=== PATIENT | female | born 1945 | race Caucasian/White ===

== ENCOUNTER 2017-11-03 16:47 | Inpatient (IN) | payer MEDICARE ==
[~2017-11-03] VITALS: Ht 160 cm; Wt 65.8 kg
[2017-11-03 18:01] VITALS: BP 117/66
[2017-11-03] MEDS ORDERED: Dicyclomine HCl 10mg/5ml oral soln ORAL ONE (18:30)
[2017-11-03] MEDS ORDERED: Lidocaine 2% Visc 15ml soln ORAL ONE (18:30)
[2017-11-03] MEDS ORDERED: Mylanta II UD 30ml ORAL ONE (18:30)
--- NOTE | 2017-11-03 18:38 | Emergency Room Report ---
History of Present Illness General Chief Complaint: General Complaint Source: Patient, EMS Present Illness HPI 72-year-old female, history of COPD, presenting with shortness of breath for many weeks. Patient states that she was at the nail salon getting her nails done, stated that she became short of breath on exertion. This is the same shortness of breath that she has been feeling for several weeks. States that she does not have her inhaler at home because she has not had a refill. Denies any chest pain. Some nausea no vomiting. No diarrhea she has otherwise been eating and drinking well Allergies: Coded Allergies: PENICILLINS (Verified Allergy, Unknown, 11/03/17) Patient History Past Medical History: see triage record Past Surgical History: none Pertinent Family History: none Reviewed Nursing Documentation: PMH: Agreed, PSxH: Agreed Nursing Documentation-PMH Past Medical History: No History, Except For Hx Cardiac Problems: Yes Hx Asthma: No - EMPHYSEMA Hx Cerebrovascular Accident: Yes - TIA Review of Systems All Other Systems: negative except mentioned in HPI Physical Exam Vital Signs Date Time Temp Pulse Resp B/P (MAP) Pulse Ox O2 Delivery O2 Flow Rate FiO2 11/03/17 16:53 98.6 82 20 117/66 100 Room Air Sp02 EP Interpretation: reviewed, normal General Appearance: normal inspection, well appearing, no apparent distress, alert, GCS 15, non-toxic Head: normocephalic, atraumatic Eyes: bilateral eye normal inspection, bilateral eye PERRL, bilateral eye EOMI ENT: normal ENT inspection, normal pharynx, normal voice, moist mucus membranes Neck: normal inspection, full range of motion, supple Respiratory: normal inspection, lungs clear, normal breath sounds, no respiratory distress, no retraction, no wheezing, speaking full sentences, chest symmetrical Cardiovascular #1: normal inspection, regular rate, rhythm, no edema, normal capillary refill Cardiovascular #2: 2+ radial (R), 2+ radial (L) Gastrointestinal: normal inspection, non tender, soft, non-distended, no guarding Musculoskeletal: normal inspection, back normal, normal range of motion, non- tender Neurologic: normal inspection, alert, oriented x3, responsive, motor strength/ tone normal, sensory intact, normal gait, speech normal Psychiatric: normal inspection, judgement/insight normal, memory normal Skin: normal inspection, normal color, no rash, warm/dry, well hydrated, normal turgor Medical Decision Making Diagnostic Impression: Primary Impression: Dyspnea Additional Impression: Intractable nausea and vomiting ER Course 72-year-old female with pmhx of COPD p/w SOB for several weeks DDX: COPD exacerbation, ACS, pneumonia, viral URI Plan: IV access, aquatics instructor, O2 nasal cannula, EKG, CXR obtain basic labs including blood gas, troponin ER Course: Patient has not been in any respiratory distress, is not wheezing States that she feels nauseous, Zofran given Patient continues to speak in complete sentences and is not in respiratory distress. continues to feel nauseous, intractable n/v. abdomen continues to be soft. given more pain meds Disposition: Pt will be admitted to telemetry D/W hospitalist Dr Simmons who has accepted patient for admission Please note that this Emergency Department Report was dictated using [employer] screen etcher technology software, occasionally this can lead to erroneous entry secondary to interpretation by the dictation equipment. EKG Diagnostic Results EP Interpretation: Yes Rate: normal Rhythm: NSR ST Segments: T-wave flattening in the inferior leads ASA given to patient: No Rhythm Strip EP Interpretation: Yes Rate: 80 Rhythm: NSR, no PVCs, no ectopy Chest X-ray CXR: Ordered: Yes 1 view Indication: SOB EP interpretation: Yes Interpretation: No consolidation, no effusion, no PTX, no acute cardiopulmonary disease Impression: No acute disease Electronically signed by Kenya Tim MD Laboratory Tests Test 11/03/17 18:09 11/03/17 19:30 White Blood Count 10.1 K/UL (4.8-10.8) Red Blood Count 4.75 M/UL (4.20-5.40) Hemoglobin 14.2 G/DL (12.0-16.0) Hematocrit 44.2 % (37.0-47.0) Mean Corpuscular Volume 93 FL (80-99) Mean Corpuscular Hemoglobin 30.0 PG (27.0-31.0) Mean Corpuscular Hemoglobin Concent 32.2 G/DL (32.0-36.0) Red Cell Distribution Width 11.6 % (11.6-14.8) Platelet Count 346 K/UL (150-450) Mean Platelet Volume 6.3 FL (6.5-10.1) L Neutrophils (%) (Auto) % (45.0-75.0) Lymphocytes (%) (Auto) % (20.0-45.0) Monocytes (%) (Auto) % (1.0-10.0) Eosinophils (%) (Auto) % (0.0-3.0) Basophils (%) (Auto) % (0.0-2.0) Differential Total Cells Counted 100 Neutrophils % (Manual) 82 % (45-75) H Lymphocytes % (Manual) 13 % (20-45) L Monocytes % (Manual) 3 % (1-10) Eosinophils % (Manual) 0 % (0-3) Basophils % (Manual) 0 % (0-2) Band Neutrophils 2 % (0-8) Platelet Estimate Adequate Platelet Morphology Normal Red Blood Cell Morphology Normal Sodium Level 142 MMOL/L (136-145) Potassium Level 3.1 MMOL/L (3.5-5.1) L Chloride Level 107 MMOL/L (98-107) Carbon Dioxide Level 24 MMOL/L (21-32) Anion Gap 11 mmol/L (5-15) Blood Urea Nitrogen 19 mg/dL (7-18) H Creatinine 0.6 MG/DL (0.55-1.30) Estimate Glomerular Filtration Rate mL/min (>60) Glucose Level 124 MG/DL (74-106) H Calcium Level 7.6 MG/DL (8.5-10.1) L Total Bilirubin 0.4 MG/DL (0.2-1.0) Aspartate Amino Transferase (AST) 12 U/L (15-37) L Alanine Aminotransferase (ALT) 16 U/L (12-78) Alkaline Phosphatase 74 U/L (46-116) Troponin I 0.017 ng/mL (0.000-0.056) Pro-B-Type Natriuretic Peptide 52 pg/mL (0-125) Total Protein 6.7 G/DL (6.4-8.2) Albumin 3.5 G/DL (3.4-5.0) Globulin 3.2 g/dL Albumin/Globulin Ratio 1.1 (1.0-2.7) Urine Color Yellow Urine Appearance Slightly cloudy Urine pH 7 (4.5-8.0) Urine Specific [place] 1.015 (1.005-1.035) Urine Protein 1+ (NEGATIVE) H Urine Glucose (UA) Negative (NEGATIVE) Urine Ketones 3+ (NEGATIVE) H Urine Occult Blood 4+ (NEGATIVE) H Urine Nitrite Negative (NEGATIVE) Urine Bilirubin Negative (NEGATIVE) Urine Urobilinogen 1 MG/DL (0.0-1.0) H Urine Leukocyte Esterase 3+ (NEGATIVE) H Urine RBC 10-15 /HPF (0 - 2) H Urine WBC 5-10 /HPF (0 - 2) H Urine Squamous Epithelial Cells Few /LPF (NONE/OCC) Urine Calcium Oxalate Crystals Few /LPF (NONE) Urine Bacteria Few /HPF (NONE) Urine Yeast Few /HPF (NONE) H Last Vital Signs Date Time Temp Pulse Resp B/P (MAP) Pulse Ox O2 Delivery O2 Flow Rate FiO2 11/03/17 18:01 98.6 78 20 117/66 100 Room Air Disposition: ADMITTED INPATIENT Condition: Serious Scripts Phenazopyridine Hcl* (PYRIDIUM*) 200 Mg Tablet 200 MG ORAL THREE TIMES A DAY, #14 TAB 0 Refills Prov: Kenya Tim M.D. 11/03/17 Kenya Tim M.D. Nov 03, 2017 18:38
[2017-11-03 18:46] LABS: HEMATOCRIT 44.2 % (37.0-47.0); HEMOGLOBIN 14.2 G/DL (12.0-16.0); MEAN CORPUSCULAR VOLUME 93 FL (80-99); PLATELET COUNT 346 K/UL (150-450); RED BLOOD COUNT 4.75 M/UL (4.20-5.40); RED CELL DISTRIBUTION WIDTH 11.6 % (11.6-14.8); WHITE BLOOD COUNT 10.1 K/UL (4.8-10.8)
[2017-11-03 18:56] LABS: ANION GAP 11 mmol/L (5-15); BLOOD UREA NITROGEN 19 mg/dL (7-18); CALCIUM 7.6 MG/DL (8.5-10.1); CARBON DIOXIDE 24 MMOL/L (21-32); CHLORIDE 107 MMOL/L (98-107); CREATININE 0.6 MG/DL (0.55-1.30); POTASSIUM 3.1 MMOL/L (3.5-5.1); SODIUM 142 MMOL/L (136-145)
[2017-11-03 19:06] LABS: ALANINE AMINOTRANSFERASE 16 U/L (12-78); ALBUMIN 3.5 G/DL (3.4-5.0); ALBUMIN/GLOBULIN RATIO 1.1 (1.0-2.7); ALKALINE PHOSPHATASE 74 U/L (46-116); ASPARTATE AMINO TRANSFERASE 12 U/L (15-37); BILIRUBIN,TOTAL 0.4 MG/DL (0.2-1.0)
[2017-11-03 19:43] VITALS: BP 121/68
[2017-11-03] MEDS ORDERED: PHENAZOPYRIDIN200 MG ORAL (19:45)
[2017-11-03 19:48] LABS: BILIRUBIN, URINE NEGATIVE (NEGATIVE); GLUCOSE, URINE (UA) NEGATIVE (NEGATIVE); KETONES,URINE 3+ (NEGATIVE); LEUKOCYTE ESTERASE ,URINE 3+ (NEGATIVE); NITRITE,URINE NEGATIVE (NEGATIVE); PH,URINE 7 (4.5-8.0); PROTEIN,URINE 1+ (NEGATIVE); UROBILINOGEN,URINE 1 MG/DL (0.0-1.0)
[2017-11-03 19:54] LABS: COLOR,URINE YELLOW
[2017-11-03 19:55] LABS: APPEARANCE,URINE SLIGHTLY CLOUDY
[2017-11-03] MEDS ORDERED: DULERA 100 MCG/13 GM INH (20:49)
[2017-11-03] MEDS ORDERED: HYDROCODON-ACE1 EA13 ORAL (20:49)
[2017-11-03] MEDS ORDERED: ASPIR 8181 MG ORAL (20:49)
[2017-11-03] MEDS ORDERED: DIAZEPAM10 MG ORAL (20:49)
[2017-11-03] MEDS ORDERED: Morphine Sulfate 4mg/ml Inj IVP ONE (21:30)
[2017-11-03] MEDS ORDERED: Metoclopramide 10mg/2ml Inj IVP ONE (22:15)
[2017-11-04] MEDS ORDERED: Haloperidol 5mg/ml Inj IM ONE (01:00)
[2017-11-04 01:59] VITALS: BP 118/47
[2017-11-04 04:00] VITALS: BP 138/76
[2017-11-04 08:00] VITALS: BP 116/58
[2017-11-04] MEDS: Heparin 5000 units/ml inj SUBQ SCH ×2 (09:26→20:12)
--- NOTE | 2017-11-04 10:59 | GI Initial Consult Note ---
LisaMonse Castrooi N.PBernard 11/04/17 1059: History of Present Illness General Date patient seen: Nov 04, 2017 Time patient seen: 10:53 Reason for Hospitalization: General Complaint Referring physician: TY ERNANDEZ Reason for Consultation: N/V, Abdominal Pain Present Illness HPI 72-year-old female, history of COPD, presenting with shortness of breath for many weeks. Patient states that she was at the nail salon getting her nails done, stated that she became short of breath on exertion. This is the same shortness of breath that she has been feeling for several weeks. States that she does not have her inhaler at home because she has not had a refill. Denies any chest pain. Some nausea no vomiting. No diarrhea she has otherwise been eating and drinking well GI consulted for N/V, abdominal pain. HPI as noted above. Pt seen on floor, awake A&Ox4 NAD with no active s/sx of N/V/D. C/o of N/V x 1 day and rated pain 20/10. Denied any hematemesis and coffee grounds. Currently resting, states she feels better with no abdominal pain. Tobacco user, and MJ user for 40 + years, uses Valium for anxiety. Provides vague answers when questioned about any current use. Denies ETOH use. Last EGD/colonoscopy over 5 years ago with the following stated dx >> gastroenterits DU, duodenitis, diverticulitis, internal hemorrhoids. Lab evaluation No leukocytosis Utox positive for MJ and positive for Benzo Home Meds Active Scripts Phenazopyridine Hcl* (PYRIDIUM*) 200 Mg Tablet, 200 MG ORAL THREE TIMES A DAY, # 14 TAB 0 Refills Prov:Kenya Tim M.D. 11/03/17 Reported Medications Hydrocodone Bit/Acetaminophen 10-325* (HYDROCODON-ACETAMINOPHN 10-325*) 1 Each Tablet, 1 TAB ORAL Q6H Y for For Pain, TAB 11/03/17 Aspirin* (ASPIR 81*) 81 Mg Tablet.dr, 81 MG ORAL DAILY, TAB 11/03/17 Mometasone/Formoterol (DULERA 100 MCG/5 MCG INHALER) 13 Gm Hfa.aer.ad, 2 PUFFS INH EVERY 12 HOURS 11/03/17 Diazepam* (DIAZEPAM*) 10 Mg Tablet, 10 MG ORAL DAILY, TAB 0 Refills 11/03/17 Med list reviewed/reconciled: Yes Allergies: Coded Allergies: PENICILLINS (Verified Allergy, Unknown, 11/03/17) Patient History History Provided By: Patient PMH Narrative Past Medical History: see triage record Past Surgical History: none Pertinent Family History: none Reviewed Nursing Documentation: PMH: Agreed, PSxH: Agreed Nursing Documentation-PMH Past Medical History: No History, Except For Hx Cardiac Problems: Yes Hx Asthma: No - EMPHYSEMA Hx Cerebrovascular Accident: Yes - TIA Family History Narrative Anxiety Social History: Reports: smoking, drug use - Review of Systems All Other Systems: negative except mentioned in HPI Physical Exam Vital Signs Date Time Temp Pulse Resp B/P (MAP) Pulse Ox O2 Delivery O2 Flow Rate FiO2 11/03/17 16:53 98.6 82 20 117/66 100 Room Air Sp02 EP Interpretation: reviewed, normal Labs Laboratory Tests Test 11/03/17 18:09 11/03/17 19:30 White Blood Count 10.1 K/UL (4.8-10.8) Red Blood Count 4.75 M/UL (4.20-5.40) Hemoglobin 14.2 G/DL (12.0-16.0) Hematocrit 44.2 % (37.0-47.0) Mean Corpuscular Volume 93 FL (80-99) Mean Corpuscular Hemoglobin 30.0 PG (27.0-31.0) Mean Corpuscular Hemoglobin Concent 32.2 G/DL (32.0-36.0) Red Cell Distribution Width 11.6 % (11.6-14.8) Platelet Count 346 K/UL (150-450) Mean Platelet Volume 6.3 FL (6.5-10.1) L Neutrophils (%) (Auto) % (45.0-75.0) Lymphocytes (%) (Auto) % (20.0-45.0) Monocytes (%) (Auto) % (1.0-10.0) Eosinophils (%) (Auto) % (0.0-3.0) Basophils (%) (Auto) % (0.0-2.0) Differential Total Cells Counted 100 Neutrophils % (Manual) 82 % (45-75) H Lymphocytes % (Manual) 13 % (20-45) L Monocytes % (Manual) 3 % (1-10) Eosinophils % (Manual) 0 % (0-3) Basophils % (Manual) 0 % (0-2) Band Neutrophils 2 % (0-8) Platelet Estimate Adequate Platelet Morphology Normal Red Blood Cell Morphology Normal Sodium Level 142 MMOL/L (136-145) Potassium Level 3.1 MMOL/L (3.5-5.1) L Chloride Level 107 MMOL/L (98-107) Carbon Dioxide Level 24 MMOL/L (21-32) Anion Gap 11 mmol/L (5-15) Blood Urea Nitrogen 19 mg/dL (7-18) H Creatinine 0.6 MG/DL (0.55-1.30) Estimat Glomerular Filtration Rate mL/min (>60) Glucose Level 124 MG/DL (74-106) H Calcium Level 7.6 MG/DL (8.5-10.1) L Total Bilirubin 0.4 MG/DL (0.2-1.0) Aspartate Amino Transf (AST/SGOT) 12 U/L (15-37) L Alanine Aminotransferase (ALT/SGPT) 16 U/L (12-78) Alkaline Phosphatase 74 U/L (46-116) Troponin I 0.017 ng/mL (0.000-0.056) Pro-B-Type Natriuretic Peptide 52 pg/mL (0-125) Total Protein 6.7 G/DL (6.4-8.2) Albumin 3.5 G/DL (3.4-5.0) Globulin 3.2 g/dL Albumin/Globulin Ratio 1.1 (1.0-2.7) Urine Color Yellow Urine Appearance Slightly cloudy Urine pH 7 (4.5-8.0) Urine Specific [place] 1.015 (1.005-1.035) Urine Protein 1+ (NEGATIVE) H Urine Glucose (UA) Negative (NEGATIVE) Urine Ketones 3+ (NEGATIVE) H Urine Occult Blood 4+ (NEGATIVE) H Urine Nitrite Negative (NEGATIVE) Urine Bilirubin Negative (NEGATIVE) Urine Urobilinogen 1 MG/DL (0.0-1.0) H Urine Leukocyte Esterase 3+ (NEGATIVE) H Urine RBC 10-15 /HPF (0 - 2) H Urine WBC 5-10 /HPF (0 - 2) H Urine Squamous Epithelial Cells Few /LPF (NONE/OCC) Urine Calcium Oxalate Crystals Few /LPF (NONE) Urine Bacteria Few /HPF (NONE) Urine Yeast Few /HPF (NONE) H Urine Opiates Screen Negative (NEGATIVE) Urine Barbiturates Screen Negative (NEGATIVE) Phencyclidine (PCP) Screen Negative (NEGATIVE) Urine Amphetamines Screen Negative (NEGATIVE) Urine Benzodiazepines Screen Positive (NEGATIVE) H Urine Cocaine Screen Negative (NEGATIVE) Urine Marijuana (THC) Screen Positive (NEGATIVE) H General Appearance: well appearing, no apparent distress, alert Head: normocephalic EENT: PERRL/EOMI, normal ENT inspection Neck: supple Respiratory: normal breath sounds, no respiratory distress Cardiovascular: normal rate Gastrointestinal: normal inspection, non tender, soft, normal bowel sounds, non -distended Rectal: deferred Genitourinary: no CVA tenderness Musculoskeletal: normal inspection, back normal Neurologic: normal inspection, alert, oriented x3, responsive Psychiatric: normal inspection, judgement/insight normal, memory normal Skin: normal inspection, normal color, no rash, warm/dry, palpation normal, well hydrated Lymphatic: normal inspection, no adenopathy Current Medications Current Medications Medications (Trade) Dose Ordered Sig/Emerita Route PRN Reason Start Time Stop Time Status Last Admin Dose Admin Heparin Sodium (Porcine) (Heparin 5000 units/ml) 5,000 units EVERY 12 HOURS SUBQ 11/04/17 09:00 12/04/17 08:59 11/04/17 09:26 Ondansetron HCl (Zofran) 4 mg Q4H PRN IVP Nausea & Vomiting 11/04/17 06:00 12/04/17 05:59 11/04/17 06:21 GI: Plan Problems: (1) Cyclic vomiting syndrome (2) Marijuana abuse (3) Abdominal pain (4) Intractable nausea and vomiting Plan symptomatic treatment at this time zofran prn, reglan for persistent vomiting FLD, adv as tolerated ppi daily PO/IV hydration + electrolyte correction pain mgmt drug avoidance education given fu labs Discussed with Dr. Nieves. Thank you for this patient referral, we will follow. GRETCHEN NIEVES 11/09/17 1225: History of Present Illness General Reason for Hospitalization: General Complaint Present Illness Home Meds Active Scripts Phenazopyridine Hcl* (PYRIDIUM*) 200 Mg Tablet, 200 MG ORAL THREE TIMES A DAY, # 14 TAB 0 Refills Prov:Kenya Tim M.D. 11/03/17 Reported Medications Hydrocodone Bit/Acetaminophen 10-325* (HYDROCODON-ACETAMINOPHN 10-325*) 1 Each Tablet, 1 TAB ORAL Q6H Y for For Pain, TAB 11/03/17 Aspirin* (ASPIR 81*) 81 Mg Tablet.dr, 81 MG ORAL DAILY, TAB 11/03/17 Mometasone/Formoterol (DULERA 100 MCG/5 MCG INHALER) 13 Gm Hfa.aer.ad, 2 PUFFS INH EVERY 12 HOURS 11/03/17 Diazepam* (DIAZEPAM*) 10 Mg Tablet, 10 MG ORAL DAILY, TAB 0 Refills 11/03/17 Allergies: Coded Allergies: PENICILLINS (Verified Allergy, Unknown, 11/03/17) GI: Plan Plan The patient was seen and examined at bedside and all new and available data was reviewed in the patients chart. I agree with the above findings, impression and plan. (Patient seen earlier today. Signature stamp does not reflect patient encounter time.). - MD [facility] Jostin NZeferino Nov 04, 2017 10:59 GRETCHEN NIEVES Nov 09, 2017 12:25
--- NOTE | 2017-11-04 11:19 | Diagnostic Imaging Report ---
Indication: Abdominal pain Technique: Spiral acquisitions obtained through the abdomen and pelvis. No oral contrast utilized, per emergency room physician request No IV contrast utilized, per referring physician request.. Multiplanar reconstructions were generated. Total dose length product 826.69 mGycm. CTDIvol(s) 16.14 mGy. Dose reduction achieved using automated exposure control Comparison: None Findings: Normal appendix. There is colonic diverticulosis. There is equivocal minimal stranding of the soft tissues adjacent to the mid sigmoid. No small bowel distention. No free or loculated intraperitoneal air or fluid is evident. There is a small sliding-type hiatal hernia. Lack of IV contrast limits assessment of the solid organs. The liver, gallbladder, bile ducts, pancreas, spleen, adrenals, kidneys are unremarkable. No renal or ureteral calculi. The bladder is unremarkable. The uterus and ovaries are not visualized, presumed surgically absent. The included lung bases are essentially clear. There is an area of hyperinflation in the right lung. There is some scarring at the left lung base. There is a faint 3 mm opacity of the left lung base periphery The bones are unremarkable Impression: No definite acute process. However, there is colonic diverticulosis, and equivocal minimal perisigmoid fat stranding could indicate very early diverticulitis changes. Correlation with clinical findings is recommended 3 mm opacity left lung base periphery. Consider follow-up CT in 6-12 months if there is significant smoking history or other risk factors for lung carcinoma COPD changes Small hiatal hernia This agrees with the preliminary interpretation provided overnight by [facility] teleradiology service. The CT scanner at [facility] is accredited by the [employer] and the scans are performed using protocols designed to limit radiation exposure to as low as reasonably achievable to attain images of sufficient resolution adequate for diagnostic evaluation.
[2017-11-04 12:00] VITALS: BP 129/69
[2017-11-04 16:00] VITALS: BP 119/56
[2017-11-04 20:19] VITALS: BP 118/60
[2017-11-05 00:20] VITALS: BP 111/61
[2017-11-05 04:00] VITALS: BP 115/68
[2017-11-05 07:55] VITALS: BP 107/63
[2017-11-05 08:19] LABS: BASOPHILS % (AUTO) 1.1 % (0.0-2.0); EOSINOPHILS % (AUTO) 2.4 % (0.0-3.0); HEMATOCRIT 39.6 % (37.0-47.0); HEMOGLOBIN 13.3 G/DL (12.0-16.0); LYMPHOCYTES % (AUTO) 35.1 % (20.0-45.0); MEAN CORPUSCULAR VOLUME 94 FL (80-99); MONOCYTES % (AUTO) 13.8 % (1.0-10.0); NEUTROPHILS % (AUTO) 47.6 % (45.0-75.0); PLATELET COUNT 310 K/UL (150-450); RED BLOOD COUNT 4.22 M/UL (4.20-5.40); RED CELL DISTRIBUTION WIDTH 11.9 % (11.6-14.8); WHITE BLOOD COUNT 3.9 K/UL (4.8-10.8)
[2017-11-05 08:25] LABS: ANION GAP 8 mmol/L (5-15); BLOOD UREA NITROGEN 9 mg/dL (7-18); CALCIUM 8.2 MG/DL (8.5-10.1); CARBON DIOXIDE 27 MMOL/L (21-32); CHLORIDE 106 MMOL/L (98-107); CREATININE 0.7 MG/DL (0.55-1.30); POTASSIUM 3.2 MMOL/L (3.5-5.1); SODIUM 141 MMOL/L (136-145)
--- NOTE | 2017-11-05 08:28 | General Progress Note ---
Assessment/Plan Status Narrative s/p admit with chest pain and shortness of brteath associated with nausea inthe foot salon plan ? allergic reaciton to chemical get cardiology eval gi seenpatinet will re eval. Subjective Date patient seen: Nov 05, 2017 Time patient seen: 08:27 Constitutional: Reports: no symptoms HEENT: Reports: no symptoms Cardiovascular: Reports: no symptoms Allergies: Coded Allergies: PENICILLINS (Verified Allergy, Unknown, 11/03/17) Objective Last 24 Hour Vital Signs Date Time Temp Pulse Resp B/P (MAP) Pulse Ox O2 Delivery O2 Flow Rate FiO2 11/05/17 07:55 98.1 61 18 107/63 95 Room Air 11/05/17 04:00 61 11/05/17 04:00 98.2 57 20 115/68 97 Room Air 11/05/17 00:20 97.7 73 20 111/61 97 Room Air 11/05/17 00:00 67 11/04/17 20:19 98.4 56 20 118/60 97 Room Air 11/04/17 20:00 75 11/04/17 17:00 77 11/04/17 16:00 98.2 72 18 119/56 98 Room Air 11/04/17 12:00 98.0 84 18 129/69 98 Room Air 11/04/17 11:40 73 Intake and Output 11/04/17 11/05/17 19:00 07:00 Intake Total 580 ml Balance 580 ml Intake Oral 580 ml # Voids 5 1 # Bowel Movements 2 Laboratory Tests 11/05/17 07:35: White Blood Count [Pending], Red Blood Count [Pending], Hemoglobin [Pending], Hematocrit [Pending], Mean Corpuscular Volume [Pending], Mean Corpuscular Hemoglobin [Pending], Mean Corpuscular Hemoglobin Concent [Pending], Red Cell Distribution Width [Pending], Platelet Count [Pending], Mean Platelet Volume [ Pending], Neutrophils (%) (Auto) [Pending], Lymphocytes (%) (Auto) [Pending], Monocytes (%) (Auto) [Pending], Eosinophils (%) (Auto) [Pending], Basophils (%) (Auto) [Pending], Sodium Level [Pending], Potassium Level [Pending], Chloride Level [Pending], Carbon Dioxide Level [Pending], Blood Urea Nitrogen [Pending], Creatinine [Pending], Estimat Glomerular Filtration Rate [Pending], Glucose Level [Pending], Calcium Level [Pending] Height (Feet): 5 Height (Inches): 3.00 Weight (Pounds): 145 General Appearance: WD/WN Neck: non-tender Cardiovascular: no JVD Respiratory/Chest: lungs clear Abdomen: soft TY ERNANDEZ Nov 05, 2017 08:28
--- NOTE | 2017-11-05 08:49 | Consultation ---
Consult Note Consult Note Cardiology /EP Full consult dictated # [id number] KATHY MARTIN Nov 05, 2017 08:49
[2017-11-05] MEDS: Heparin 5000 units/ml inj SUBQ SCH ×2 (09:05→21:11)
--- NOTE | 2017-11-05 10:16 | GI Progress Note ---
Assessment/Plan Problems: (1) Cyclic vomiting syndrome ICD Codes: G43.A0 - Cyclical vomiting, not intractable SNOMED: 40332520 (2) Marijuana abuse ICD Codes: F12.10 - Cannabis abuse, uncomplicated SNOMED: 71822946 (3) Abdominal pain ICD Codes: R10.9 - Unspecified abdominal pain SNOMED: 01809279 (4) Intractable nausea and vomiting ICD Codes: R11.2 - Nausea with vomiting, unspecified SNOMED: 895965383, 382491837 Status: stable Status Narrative Discussed with Dr. Bridges. Assessment/Plan symptomatic treatment at this time adv to regular diet zofran prn, reglan for persistent vomiting ppi daily PO/IV hydration + electrolyte correction pain mgmt drug avoidance education given abx fu labs The patient was seen and examined at bedside and all new and available data was reviewed in the patients chart. I agree with the above findings, impression and plan. (Patient seen earlier today. Signature stamp does not reflect patient encounter time.). - Philippe Bridges MD Subjective Gastrointestinal/Abdominal: Reports: no symptoms Subjective burning urination Objective Last 24 Hour Vital Signs Date Time Temp Pulse Resp B/P (MAP) Pulse Ox O2 Delivery O2 Flow Rate FiO2 11/05/17 07:55 98.1 61 18 107/63 95 Room Air 11/05/17 04:00 61 11/05/17 04:00 98.2 57 20 115/68 97 Room Air 11/05/17 00:20 97.7 73 20 111/61 97 Room Air 11/05/17 00:00 67 11/04/17 20:19 98.4 56 20 118/60 97 Room Air 11/04/17 20:00 75 11/04/17 17:00 77 11/04/17 16:00 98.2 72 18 119/56 98 Room Air 11/04/17 12:00 98.0 84 18 129/69 98 Room Air 11/04/17 11:40 73 Intake and Output 11/04/17 11/05/17 19:00 07:00 Intake Total 580 ml Balance 580 ml Intake Oral 580 ml # Voids 5 1 # Bowel Movements 2 Laboratory Tests Test 11/05/17 07:30 11/05/17 07:35 Troponin I 0.006 ng/mL (0.000-0.056) White Blood Count 3.9 K/UL (4.8-10.8) L Red Blood Count 4.22 M/UL (4.20-5.40) Hemoglobin 13.3 G/DL (12.0-16.0) Hematocrit 39.6 % (37.0-47.0) Mean Corpuscular Volume 94 FL (80-99) Mean Corpuscular Hemoglobin 31.6 PG (27.0-31.0) H Mean Corpuscular Hemoglobin Concent 33.6 G/DL (32.0-36.0) Red Cell Distribution Width 11.9 % (11.6-14.8) Platelet Count 310 K/UL (150-450) Mean Platelet Volume 6.9 FL (6.5-10.1) Neutrophils (%) (Auto) 47.6 % (45.0-75.0) Lymphocytes (%) (Auto) 35.1 % (20.0-45.0) Monocytes (%) (Auto) 13.8 % (1.0-10.0) H Eosinophils (%) (Auto) 2.4 % (0.0-3.0) Basophils (%) (Auto) 1.1 % (0.0-2.0) Sodium Level 141 MMOL/L (136-145) Potassium Level 3.2 MMOL/L (3.5-5.1) L Chloride Level 106 MMOL/L (98-107) Carbon Dioxide Level 27 MMOL/L (21-32) Anion Gap 8 mmol/L (5-15) Blood Urea Nitrogen 9 mg/dL (7-18) Creatinine 0.7 MG/DL (0.55-1.30) Estimat Glomerular Filtration Rate mL/min (>60) Glucose Level 99 MG/DL (74-106) Calcium Level 8.2 MG/DL (8.5-10.1) L Height (Feet): 5 Height (Inches): 3.00 Weight (Pounds): 145 General Appearance: WD/WN, no apparent distress, alert Cardiovascular: normal rate Respiratory/Chest: normal breath sounds, no respiratory distress Abdominal Exam: normal bowel sounds, non tender, soft Extremities: normal range of motion, non-tender Monse Gonzalez N.PBernard Nov 05, 2017 10:16 GRETCHEN BRIDGES Nov 09, 2017 12:28
[2017-11-05 12:00] VITALS: BP 146/71
[2017-11-05 16:00] VITALS: BP 137/66
--- NOTE | 2017-11-05 16:15 | Consultation ---
DATE OF CONSULTATION: 11/05/2017 CARDIOLOGY CONSULTATION CONSULTING PHYSICIAN: Grace Murillo M.D. REASON FOR CONSULT: Chest pain and dizziness. HISTORY OF PRESENT ILLNESS: The patient is a 72-year-old woman with a history of tobacco use and COPD, who states that she has had episodes of sudden nausea associated with chest fullness, dizziness, and severe fatigue. She has had these symptoms chronically occurring a few times a year, but more recently they have been occurring every few weeks. On the day of admission, she was at a nail salon and suddenly became short of breath. She was brought to the emergency room and is admitted for further treatment. Cardiology evaluation was requested for assessment of her symptoms of chest fullness and dizziness to rule out coronary artery disease or arrhythmia. 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 MEDICATIONS: Currently Protonix 40 mg daily, subcutaneous heparin every 12 hours, and Zofran 4 mg IV q.4 h. p.r.n. ALLERGIES: Penicillins. SOCIAL HISTORY: The patient smokes one pack per day. She does not drink alcohol and denies drug use. PHYSICAL EXAMINATION: VITAL SIGNS: Blood pressure is 115/68, pulse 57 and regular, respirations 20, and afebrile. GENERAL: Alert, well-developed white female, in no acute distress. HEENT: Normocephalic and atraumatic. Pupils are equal, round, and reactive to light. Sclerae anicteric. Oral mucosa are moist. NECK: Supple. There is no jugular venous distention. No carotid bruits. No thyromegaly. LUNGS: Clear to auscultation bilaterally. HEART: Regular S1 and S2 with no murmurs, rubs, S3, or S4. ABDOMEN: Soft and nontender. No masses or organomegaly. EXTREMITIES: No cyanosis, clubbing, or edema. NEUROLOGIC: No gross focal motor deficits. LABORATORY AND DIAGNOSTIC DATA: Hemoglobin 13, hematocrit 39, white blood count 3900, and platelets 310,000. Sodium 141, potassium 3.2, bicarbonate 27, BUN 9, and creatinine 0.7. Troponin 0.017. EKG is pending. Telemetry has shown normal sinus rhythm. Abdomen and pelvis CT shows colonic diverticulosis, small hiatal hernia, and equivocal perisigmoid fat, possible early diverticulitis. There is a 3 mm opacity in the left lung base. ASSESSMENT AND RECOMMENDATION: The patient is a 72-year-old woman with chronic obstructive pulmonary disease, who was admitted with shortness of breath, but also gives a history of episodes of nausea, vomiting, fatigue, chest fullness, and dizziness. The cause of these symptoms is unclear. She may have ischemic heart disease given her risk factor of tobacco use. She may have an arrhythmia. I agree with admission to telemetry. We will check serial troponin levels and EKGs to rule out myocardial infarction. If she rules out, then a stress myocardial perfusion study will be performed to rule out ischemia. We will monitor for arrhythmias on telemetry and we will also check orthostatic vital signs. An echocardiogram will be obtained to evaluate left ventricular function and wall motion. If she rules out for myocardial infarction, then a stress nuclear study will be obtained, to rule out ischemia. With regard to her symptoms of dizziness, orthostatic vital signs will be obtained and she will continue on telemetry. Further evaluation of her nausea and vomiting will be as per GI bi consultant. Thank you for allowing me to participate in her care. Further recommendations will be made regarding her treatment. Grace Murillo M.D. DR: ALEX JOB#: [id number] CC:
[2017-11-05] MEDS: ceFAZolin sod 1 GM in D5W 55 ML IVPB SCH (18:14)
[2017-11-05 20:53] VITALS: BP 120/79
--- NOTE | 2017-11-05 22:30 | History and Physical Report ---
DATE OF ADMISSION: 11/03/2017 The patient was admitted to [facility]. HISTORY OF PRESENT ILLNESS: This is a 72-year-old female with history of COPD, shortness of breath for many weeks. She was in a nail salon getting her nails done, got short of breath, not feeling well. Apparently had some nausea. She had no diarrhea and no vomiting. She presented to the hospital. PAST MEDICAL HISTORY: 1. Smoker. 2. COPD. 3. Posttraumatic stress disorder. 4. Chronic pain syndrome. 5. . 6. Gastroesophageal reflux disease. SOCIAL HISTORY: She is not . She smokes. 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 FAMILY HISTORY: Otherwise, noncontributory. PHYSICAL EXAMINATION: HEENT: Normocephalic and atraumatic. Anicteric sclerae. LUNGS: Clear. HEART: S1 and S2 regular. ABDOMEN: Soft. Positive bowel sounds. . EXTREMITIES: No clubbing or cyanosis. THE PATIENT WAS ADMITTED WITH THE FOLLOWIN. Chest pain. 2. COPD. 3. Nausea and vomiting. The patient was seen and evaluated in the ER. She had an EKG, normal sinus rhythm. ____ inferior lead. The patient has had labs done. White blood cell count is normal. Red blood cell count is normal. Troponin was 0.017. Urine shows blood in it. There is a UTI. IMPRESSION: The patient the following things. 1. Nausea and vomiting, unclear etiology. 2. Chronic obstructive pulmonary disease. 3. Chest pain. 4. Acute urinary tract infection. Cardiology consultation will be obtained for chest pain. EKG was reviewed. Urine cultures so far no growth. Troponin to be ordered. Cardiology consultation, GI consultation. The patient may need imaging. Vamshi Snow M.D. DR: /LUCY JOB#: [id number] CC:
[2017-11-06 00:49] VITALS: BP 138/61
[2017-11-06] MEDS: ceFAZolin sod 1 GM in D5W 55 ML IVPB SCH ×2 (02:13→09:42)
[2017-11-06 04:57] VITALS: BP 111/57
[2017-11-06 07:31] LABS: BASOPHILS % (AUTO) 1.1 % (0.0-2.0); EOSINOPHILS % (AUTO) 2.5 % (0.0-3.0); HEMATOCRIT 36.9 % (37.0-47.0); HEMOGLOBIN 12.6 G/DL (12.0-16.0); LYMPHOCYTES % (AUTO) 42.9 % (20.0-45.0); MEAN CORPUSCULAR VOLUME 94 FL (80-99); NEUTROPHILS % (AUTO) 42.5 % (45.0-75.0); PLATELET COUNT 305 K/UL (150-450); RED BLOOD COUNT 3.91 M/UL (4.20-5.40); RED CELL DISTRIBUTION WIDTH 11.9 % (11.6-14.8); WHITE BLOOD COUNT 4.9 K/UL (4.8-10.8)
[2017-11-06 07:42] LABS: ANION GAP 10 mmol/L (5-15); BLOOD UREA NITROGEN 12 mg/dL (7-18); CALCIUM 8.3 MG/DL (8.5-10.1); CARBON DIOXIDE 28 MMOL/L (21-32); CHLORIDE 105 MMOL/L (98-107); CREATININE 0.7 MG/DL (0.55-1.30); POTASSIUM 3.5 MMOL/L (3.5-5.1); SODIUM 142 MMOL/L (136-145)
[2017-11-06 08:00] VITALS: BP 101/48
[2017-11-06] MEDS: Heparin 5000 units/ml inj SUBQ SCH (09:00)
[2017-11-06 12:00] VITALS: BP 115/73
--- NOTE | 2017-11-06 14:36 | Cardiology Progress Note ---
Assessment/Plan Status: stable, progressing Status Narrative Pt stable from cardiac standpoint. She has ruled out for SC, w/ negative troponins. ECHO shows mild pulm hypertension and normal LV systolic function. The cause of her episodes of sudden dizziness/weakness is unclear - may be due to arrhythmia. however, telemetry here has shown NSR Assessment/Plan Agree w/ dc plan. Will see in office and arrange outpatient event monitoring. Subjective ROS Limited/Unobtainable: No Subjective Cardiology /EP Pt without c/o chest pain, dyspnea. n/v have resolved Objective Last 24 Hour Vital Signs Date Time Temp Pulse Resp B/P (MAP) Pulse Ox O2 Delivery O2 Flow Rate FiO2 11/06/17 12:00 75 11/06/17 12:00 97.1 74 18 115/73 98 Room Air 11/06/17 08:00 96.9 59 18 101/48 97 Room Air 11/06/17 08:00 70 11/06/17 04:57 97.9 56 18 111/57 98 Room Air 11/06/17 04:00 70 11/06/17 00:49 97.6 71 18 138/61 96 Room Air 11/06/17 00:00 72 11/05/17 20:53 96.8 73 18 120/79 97 Room Air 11/05/17 20:00 71 11/05/17 16:00 98.4 69 19 137/66 Room Air 11/05/17 16:00 72 General Appearance: WD/WN, no apparent distress EENT: PERRL/EOMI Neck: supple, no JVD Rhythm: NSR Cardiovascular: normal rate, regular rhythm, no gallop/murmur Respiratory/Chest: lungs clear Abdomen: non tender, soft Extremities: no swelling Intake and Output 11/05/17 11/06/17 19:00 07:00 Intake Total 720 ml 530 ml Balance 720 ml 530 ml Intake Oral 720 ml 420 ml IV Total 110 ml # Voids 6 3 Laboratory Tests Test 11/06/17 05:40 White Blood Count 4.9 K/UL (4.8-10.8) Red Blood Count 3.91 M/UL (4.20-5.40) L Hemoglobin 12.6 G/DL (12.0-16.0) Hematocrit 36.9 % (37.0-47.0) L Mean Corpuscular Volume 94 FL (80-99) Mean Corpuscular Hemoglobin 32.3 PG (27.0-31.0) H Mean Corpuscular Hemoglobin Concent 34.2 G/DL (32.0-36.0) Red Cell Distribution Width 11.9 % (11.6-14.8) Platelet Count 305 K/UL (150-450) Mean Platelet Volume 6.8 FL (6.5-10.1) Neutrophils (%) (Auto) 42.5 % (45.0-75.0) L Lymphocytes (%) (Auto) 42.9 % (20.0-45.0) Monocytes (%) (Auto) 11.0 % (1.0-10.0) H Eosinophils (%) (Auto) 2.5 % (0.0-3.0) Basophils (%) (Auto) 1.1 % (0.0-2.0) Sodium Level 142 MMOL/L (136-145) Potassium Level 3.5 MMOL/L (3.5-5.1) Chloride Level 105 MMOL/L (98-107) Carbon Dioxide Level 28 MMOL/L (21-32) Anion Gap 10 mmol/L (5-15) Blood Urea Nitrogen 12 mg/dL (7-18) Creatinine 0.7 MG/DL (0.55-1.30) Estimat Glomerular Filtration Rate mL/min (>60) Glucose Level 100 MG/DL (74-106) Calcium Level 8.3 MG/DL (8.5-10.1) L Magnesium Level 2.0 MG/DL (1.8-2.4) Troponin I 0.000 ng/mL (0.000-0.056) Microbiology Date/Time Source Procedure Growth Status 11/03/17 19:30 Urine,Clean Catch Urine Culture - Final Enterococcus Faecalis Complete KATHY MARTIN Nov 06, 2017 14:36
[2017-11-06] MEDS ORDERED: Tubing IV Secondary IV ONE (14:59)
[2017-11-06] MEDS ORDERED: NS 275ml ONE (14:59)
--- NOTE | 2017-11-10 11:28 | Discharge Summary ---
Discharge Summary Hospital Course Date of Admission Nov 03, 2017 at 20:42 Date of Discharge Nov 06, 2017 at 15:00 Admitting Diagnosis abd pain, intractable vomiting HPI Unknown Destiny is a 72 year old female who was admitted on Nov 03, 2017 at 20: 42 for Abdominal Pain,Intractable Vomiting Hospital Course dc summary #[id number] Discharge Medications Continued Medications: Aspirin* (Aspir 81*) 81 Mg Tablet.dr 81 MG ORAL DAILY, TAB Diazepam* (Diazepam*) 10 Mg Tablet 10 MG ORAL DAILY, TAB 0 Refills Hydrocodone Bit/Acetaminophen 10-325* (Hydrocodon-Acetaminophn 10-325*) 1 Each Tablet 1 TAB ORAL Q6H PRN for For Pain, TAB Mometasone/Formoterol (Dulera 100 Mcg/5 Mcg Inhaler) 13 Gm Hfa.aer.ad 2 PUFFS INH EVERY 12 HOURS Phenazopyridine Hcl* (Pyridium*) 200 Mg Tablet 200 MG ORAL THREE TIMES A DAY, #14 TAB 0 Refills Discharge Condition Upon Discharge: stable Discharge Disposition Patient was discharged to Home (01) Discharge Diagnoses: Discharge Instructions Discharge Instructions Special Instructions I have been assigned to complete a D/C Summary on this account. I was not involved in the patient management Sheri Coleman NP (Vanchtein) Nov 10, 2017 11:28
--- NOTE | 2017-11-10 16:15 | Discharge Summary 2 SIG ---
DATE OF ADMISSION: 11/03/2017 DATE OF DISCHARGE: 11/06/2017 REASON FOR ADMISSION: 72-year-old female with past medical history significant for COPD, posttraumatic stress disorder, chronic pain syndrome, GERD, TIA, and current smoker, presented to emergency department with shortness of breath for weeks. The patient reported that while being in the nail salon, she developed sudden shortness of breath on exertion. Described as the same shortness of breath she had been feeling for several weeks. The patient ran out of the inhaler at home and was not able to get a refill. The patient also reported intractable nausea and vomiting. No diarrhea. She admitted to chest discomfort and epigastric pain, associated with nausea. Troponin was negative. Potassium - 3.1. Urine tox screen was positive for benzodiazepine and marijuana. Urinalysis revealed +3 leukocyte esterase and pyuria, but showed only few bacteria. EKG revealed normal sinus rhythm with T-wave inversion in inferior leads. Chest x-ray revealed no acute cardiopulmonary pathology. The patient also undergone CT of the abdomen and pelvis, which revealed no definite acute process, however, showed colonic diverticulosis and equivocal minimal perisigmoid fat stranding, which could be indicative of very early diverticulitis changes. 3 mm opacity in the left lung base periphery and COPD changes were noted. The patient was admitted with diagnoses of COPD with dyspnea, chest pain with associated nausea, vomiting, dehydration, abdominal pain, possible urinary tract infection. HOSPITAL COURSE: The patient was admitted. Cardiology and GI consults were requested. The patient was on telemetry floor. Serial troponin x3 were negative. EKG revealed no acute ischemic changes. Therefore, the patient was ruled out for acute MN. According to Cardiology, the patient's chest discomfort and sudden dizziness and weakness were unclear, possibly due to arrhythmia. However, telemetry showed normal sinus rhythm, no evidence of arrhythmia. Echocardiogram revealed ejection fraction of 60% and right ventricular systolic pressure of 37 consistent with mild pulmonary hypertension. No evidence of left ventricular hypertrophy. No evidence of pericardial effusion. Cardiology recommended to arrange outpatient event monitoring . Office number was provided for further references. Supplemental oxygen and pulmonary toilet were provided to keep saturation above 92%. Pulse oximetry was stable on room air. Pulmonary toilet was provided as needed. No evidence of COPD exacerbation. Patient was stressed the importance to continue inhalers at home and get refill on time. Prescription provided. Patient was counseled on smoking cessation, not ready to quit. Urine culture was positive for Enterococcus faecalis. The patient was on antibiotics. Pain management was provided. According to the GI specialist, who closely followed the patient, intractable nausea and vomiting were likely related to cyclic vomiting syndrome, possibly due to the marijuana abuse. The patient received symptomatic treatment. Antiemetic provided as needed. Diet was advanced as tolerated. The patient was placed on PPI. The patient was on IV hydration. Patient was encouraged liberal oral hydration upon discharge. Electrolytes corrected as needed. Education provided regarding drug avoidance. Pain management provided. Patient was able to tolerate diet. Nausea and vomiting resolved; no chest pain , no abdominal pain. The patient was stable for discharge. FINAL DIAGNOSES: 1. Cyclic vomiting syndrome. 2. Marijuana abuse. 3. Intractable nausea and vomiting, due to cyclic vomiting syndrome( likely secondary to marijuana abuse) 4. Abdominal pain, likely secondary to above. 5. Dehydration. 6. Chronic obstructive pulmonary disease. 7. Acute urinary tract infection with Enterococcus faecalis. 8. Mild pulmonary hypertension. DISCHARGE MEDICATIONS: See medication reconciliation list. Prescription provided. DISCHARGE INSTRUCTIONS: The patient was discharged home. Follow up with the primary medical doctor next week. Follow up with the potato picker to arrange outpatient event monitoring. Vamshi Snow M.D. I have been assigned to dictate discharge summary on this account and I was not involved in the patient's management. Sheri Rachelcaroline N.PBernard DR: MONICA JOB#: [id number] CC: XAVIER
--- NOTE | 2017-11-15 21:47 | Cardiology Report ---
APPROVED REPORT EXAM: Two-dimensional and M-mode echocardiogram with Doppler and color Doppler. INDICATION Arrhythmia M-Mode DIMENSIONS IVSd0.9 (0.7-1.1cm)Left Atrium (MM)3.3 (1.6-4.0cm) LVDd4.1 (3.5-5.6cm)Aortic Root3.1 (2.0-3.7cm) PWd1.3 (0.7-1.1cm)Aortic Cusp Exc.1.7 (1.5-2.0cm) LVDs2.8 (2.5-4.0cm) PWs1.9 cm Normal left ventricular chamber size, systolic function and wall motion. Left ventricular ejection fraction estimated to be 60 %. No evidence of left ventricular hypertrophy. No evidence of pericardial effusion. Left atrial size at upper limits of normal. Right cardiac chamber sizes are within normal limits. Mild focal aortic valve sclerosis with adequate cusp excursion. Thickened mitral valve leaflets with normal excursion. Mitral annulus and aortic root calcification. Normal pulmonic valve structure. Normal tricuspid valve structure. IVC at normal size with physiologic collapse. A color flow and spectral Doppler study was performed and revealed: Mild mitral regurgitation. Mitral diastolic velocities suggest reduced left ventricular relaxation c/w mild LV diastolic dysfunction. Moderate tricuspid regurgitation. Tricuspid systolic velocities suggests peak right ventricular systolic pressure of 37 mmHg, consistent with mild pulmonary hypertension. Pulmonic regurgitation present.
--- NOTE | 2017-11-16 00:20 | Cardiology Report ---
APPROVED REPORT EKG Measurement Heart [id number] Normal sinus rhythm Low voltage QRS Possible Anterolateral infarct, age undetermined Abnormal ECG
== END 2017-11-06 15:00 | disposition home or self-care (01) | DRG 103 ==
LOC: EDBD 16:47 → EMR 16:59 → 4E 20:42 → EDBEDREQTM 11-04 01:15 → EDBEDREQDT 11-04 01:15 → EDBEDREQSVC 11-04 01:15 → EDBEDREQ 11-04 01:15 → ENRESERV 11-04 01:30 → EDBEDREQ 11-04 01:33 → 2E 11-04 04:20
DX: G43.A1 Cyclical vomiting, in migraine, intractable (principal); J44.9 Chronic obstructive pulmonary disease, unspecified; N39.0 Urinary tract infection, site not specified; E86.0 Dehydration; F17.210 Nicotine dependence, cigarettes, uncomplicated; F12.10 Cannabis abuse, uncomplicated; K21.9 Gastro-esophageal reflux disease without esophagitis; F43.10 Post-traumatic stress disorder, unspecified; F41.9 Anxiety disorder, unspecified; B95.2 Enterococcus as the cause of diseases classified elsewhere; G89.4 Chronic pain syndrome; Z88.0 Allergy status to penicillin; Z79.82 Long term (current) use of aspirin; Z86.73 Personal history of transient ischemic attack (TIA), and cerebral infarction without residual deficits
CPT/HCPCS: 36415; 74176; 80048; 80053; 80307; 81003; 83735; 83880; 84484; 85007; 85025; 87086; 87181; 93005; 93306; 99285; J2405; J2765; J8499